=== PATIENT | male | born 1980 | race African-American/Black ===

== ENCOUNTER 2020-08-07 13:21 | Emergency (ER) | payer SELFPAY ==
[~2020-08-07] VITALS: Ht 180.3 cm; Wt 118.0 kg
[2020-08-07] MEDS ORDERED: MAGN296S70 MT (15:04)
[2020-08-07] MEDS ORDERED: DOCU250C14 MT (15:04)
[2020-08-07 15:16] VITALS: BP 140/78
== END 2020-08-07 15:16 | disposition home or self-care (01) ==
LOC: ER 13:21
DX: K64.9 Unspecified hemorrhoids (principal); F12.10 Cannabis abuse, uncomplicated; F15.10 Other stimulant abuse, uncomplicated; Z98.890 Other specified postprocedural states
CPT/HCPCS: 99281

== ENCOUNTER 2022-09-01 19:13 | Emergency (ER) | payer MEDICAID ==
[~2022-09-01] VITALS: Ht 180.3 cm; Wt 122.6 kg
[~2022-09-01 19:13] MED LIST: DOCU250C14 MT; MAGN296S70 MT
[2022-09-01] MEDS ORDERED: TETRACAINE 0.5% OPHTH DROPS 4ML BOTHEYE ONE (19:30)
[2022-09-01] MEDS ORDERED: FLUORESCEIN SODIUM 1MG/STRIP BOTHEYE ONE (19:30)
[2022-09-01 19:51] VITALS: BP 170/104
[2022-09-01] MEDS ORDERED: AMLODIPINE 5MG TABLET PO ONE (21:00)
[2022-09-01] MEDS ORDERED: ERYT1OIN6 EACHEYE (21:12)
[2022-09-01] MEDS ORDERED: AMLO5TAB88 MT (21:13)
== END 2022-09-01 21:28 | disposition home or self-care (01) ==
LOC: ER 19:13
DX: H04.301 Unspecified dacryocystitis of right lacrimal passage (principal); I10 Essential (primary) hypertension; Z91.14 Patient's other noncompliance with medication regimen
CPT/HCPCS: 99283